=== PATIENT | female | born 1935 | race Caucasian/White ===

== ENCOUNTER → 2017-07-24 | Outpatient (CLI) | payer MEDICARE, OTHER ==
[~2017-07-24] MED LIST: ASPI325 PO; ASPI81CH; BLOOD PRESSURE MED; CEPH500 PO; CIPR500 PO; DAILY VALUE1 EACH PO; DILT120 PO; Inderal80 MG PO; Inspiration1 EACH NEB; LISI5 PO; LOSA50 PO; Levaquin750 MG PO; METO25ER PO; METR500 PO; Norco 5-325 Ta1 EACH PO; TRAACE PO; UNKNOWN BP MEDS PO; Zofran Odt4 MG SL; Zofran Odt8 MG SL; [UNRECOGNIZED DRUG - REMARK] PO
== END ==
LOC: LAB 14:35 → LAB SHORT 14:35
DX: R31.9 Hematuria, unspecified (principal)
CPT/HCPCS: 87086

== ENCOUNTER 2017-07-27 06:26 | Emergency (ER) | payer MEDICARE, OTHER ==
[~2017-07-27] VITALS: Ht 152.4 cm; Wt 54.4 kg
[~2017-07-27 06:26] MED LIST changes: -ASPI81CH; -CEPH500 PO; -DILT120 PO; -LOSA50 PO; -Zofran Odt4 MG SL
[2017-07-27] MEDS ORDERED: DILT120 PO (06:49)
[2017-07-27] MEDS ORDERED: ASPI81CH PO (06:50)
[2017-07-27] MEDS ORDERED: LOSA50 PO (06:50)
[2017-07-27 07:08] LABS: Bilirubin, Urine Neg (Neg); Blood, Urine 5+ (Neg); Glucose Qualitative, Urine Neg (Neg); Ketones, Urine 1+ (Neg); Leukocyte Esterase, Urine 3+ (Neg); Nitrite, Urine Neg (Neg); Protein, Urine 1+ (Neg); Urobilinogen, Urine NORM (Normal)
[2017-07-27 07:14] LABS: Appearance, Urine Cloudy (Clear); Color, Urine Yellow (P-Yellow)
[2017-07-27 07:15] LABS: Red Blood Cells, Urine TNTC /hpf (0-2)
[2017-07-27 07:16] LABS: Bacteria Many /hpf; Squamous Epithelial Cells Many /hpf (Few)
[2017-07-27 07:34] LABS: BASOPHILS ABSOLUTE AUTO 0.04 K/mm3 (0.00-0.23); BASOPHILS PERCENT AUTO 1 % (0-2); EOSINOPHILS ABSOLUTE AUTO 0.11 K/mm3 (0.00-0.68); EOSINOPHILS PERCENT AUTO 1 % (0-6); Hematocrit 41.5 % (33.0-51.0); Hemoglobin 13.6 g/dL (11.5-16.0); IMMATURE GRAN ABSOLUTE AUTO 0.02 K/mm3 (0.00-0.10); IMMATURE GRAN PERCENT AUTO 0 % (0-1); LYMPHOCYTES ABSOLUTE AUTO 1.02 K/mm3 (0.84-5.20); LYMPHOCYTES PERCENT AUTO 13 % (21-46); MONOCYTES PERCENT AUTO 6 % (4-13); Mean Corpuscular HGB 29.5 pg (26.0-34.0); Mean Corpuscular HGB Conc 32.8 g/dL (31.5-36.5); Mean Corpuscular Volume 90 fL (80-100); Mean Platelet Volume 9.9 fL (9.1-12.4); NEUTROPHILS ABSOLUTE AUTO 6.16 K/mm3 (1.96-9.15); NEUTROPHILS PERCENT AUTO 78 % (41-73); Platelet Count 222 K/mm3 (150-400); RDW Coefficient Variation 12.2 % (11.7-14.2); RDW Standard Deviation 39.9 fL (35.1-46.3); Red Blood Cell Count 4.61 M/mm3 (3.80-5.20); White Blood Cell Count 7.85 K/mm3 (4.00-11.30)
[2017-07-27 07:52] LABS: Alanine Aminotransfer (ALT/SGP 34 U/L (12-78); Albumin, Blood 3.7 g/dL (3.4-5.0); Albumin/Globulin Ratio 0.8 (0.8-1.8); Alk Phos 110 U/L (50-136); Anion Gap 10 mmol/L (6-16); Aspartate Aminotrans (AST/SGOT 31 U/L (12-37); Bilirubin, Total 0.6 mg/dL (0.1-1.0); Blood Urea Nitrogen 16 mg/dL (8-24); Bun/Creatinine Ratio 17.4 (12.0-20.0); CO2, Blood 25 mmol/L (21-32); Calcium, Blood 9.4 mg/dL (8.5-10.1); Chloride, Blood 99 mmol/L (98-108); Creatinine, Blood 0.92 mg/dL (0.40-1.00); Globulin, Blood 4.7 g/dL (2.2-4.0); Glomerular Filtration Rate >60 (60-); Glucose, Blood 141 mg/dL (70-99); Potassium, Blood 4.3 mmol/L (3.5-5.5); Sodium, Blood 134 mmol/L (136-145); Total Protein, Blood 8.4 g/dL (6.4-8.2)
[2017-07-27] MEDS ORDERED: CEPH500 PO (09:18)
[2017-07-27] MEDS ORDERED: Norco 5-325 Ta1 EACH PO (09:18)
[2017-07-27] MEDS ORDERED: Zofran Odt4 MG SL (09:18)
== END 2017-07-27 10:20 | disposition home or self-care (01) ==
LOC: ER 06:26
PROVIDERS: Emergency Medicine
DX: N12 Tubulo-interstitial nephritis, not specified as acute or chronic (principal); Z79.899 Other long term (current) drug therapy; Z79.82 Long term (current) use of aspirin; I10 Essential (primary) hypertension
CPT/HCPCS: 36415; 74176; 80053; 81001; 85025; 96361; 96365; 96375; 99284; J0696; J1885; J2405; J3010; J7030

== ENCOUNTER 2017-07-28 04:51 | Inpatient (IN) | payer MEDICARE, OTHER ==
[~2017-07-28] VITALS: Ht 154.9 cm; Wt 51.4 kg
[~2017-07-28 04:51] MED LIST changes: +ASPI81CH PO; +CEPH500 PO; +DILT120 PO; +LOSA50 PO; +Zofran Odt4 MG SL
[2017-07-28 06:31] LABS: Source, Urine Clean Catch
[2017-07-28 06:42] LABS: Bilirubin, Urine Neg (Neg); Blood, Urine 4+ (Neg); Glucose Qualitative, Urine 1+ (Neg); Ketones, Urine 3+ (Neg); Leukocyte Esterase, Urine 1+ (Neg); Nitrite, Urine Pos (Neg); Protein, Urine 2+ (Neg); Specific Gravity, Urine 1.025 (1.003-1.022); Urobilinogen, Urine NORM (Normal)
[2017-07-28 06:50] LABS: Appearance, Urine Clear (Clear); Color, Urine Yellow (P-Yellow)
[2017-07-28 06:51] LABS: BASOPHILS ABSOLUTE AUTO 0.03 K/mm3 (0.00-0.23); BASOPHILS PERCENT AUTO 0 % (0-2); EOSINOPHILS ABSOLUTE AUTO 0.01 K/mm3 (0.00-0.68); EOSINOPHILS PERCENT AUTO 0 % (0-6); Hematocrit 43.1 % (33.0-51.0); Hemoglobin 14.4 g/dL (11.5-16.0); IMMATURE GRAN ABSOLUTE AUTO 0.05 K/mm3 (0.00-0.10); IMMATURE GRAN PERCENT AUTO 0 % (0-1); LYMPHOCYTES ABSOLUTE AUTO 0.78 K/mm3 (0.84-5.20); LYMPHOCYTES PERCENT AUTO 6 % (21-46); MONOCYTES ABSOLUTE AUTO 0.97 K/mm3 (0.16-1.47); MONOCYTES PERCENT AUTO 8 % (4-13); Mean Corpuscular HGB 29.3 pg (26.0-34.0); Mean Corpuscular HGB Conc 33.4 g/dL (31.5-36.5); Mean Corpuscular Volume 88 fL (80-100); Mean Platelet Volume 9.8 fL (9.1-12.4); NEUTROPHILS ABSOLUTE AUTO 10.63 K/mm3 (1.96-9.15); NEUTROPHILS PERCENT AUTO 85 % (41-73); Platelet Count 221 K/mm3 (150-400); RDW Standard Deviation 38.5 fL (35.1-46.3); Red Blood Cell Count 4.92 M/mm3 (3.80-5.20); White Blood Cell Count 12.47 K/mm3 (4.00-11.30)
[2017-07-28 06:53] LABS: Bacteria Not Seen /hpf; Red Blood Cells, Urine 50-100 /hpf (0-2); Squamous Epithelial Cells Mod /hpf (Few); White Blood Cells, Urine 0-2 /hpf (0-5)
[2017-07-28 06:54] LABS: Granular Casts 0-2 /lpf (0); Renal Epithelial Few /hpf (0-Rare)
[2017-07-28 07:09] LABS: Alanine Aminotransfer (ALT/SGP 84 U/L (12-78); Albumin, Blood 3.5 g/dL (3.4-5.0); Albumin/Globulin Ratio 0.7 (0.8-1.8); Alk Phos 110 U/L (50-136); Anion Gap 10 mmol/L (6-16); Aspartate Aminotrans (AST/SGOT 168 U/L (12-37); Bilirubin, Total 1.3 mg/dL (0.1-1.0); Blood Urea Nitrogen 13 mg/dL (8-24); CO2, Blood 24 mmol/L (21-32); Calcium, Blood 9.1 mg/dL (8.5-10.1); Chloride, Blood 90 mmol/L (98-108); Creatinine, Blood 0.81 mg/dL (0.40-1.00); Globulin, Blood 4.8 g/dL (2.2-4.0); Glomerular Filtration Rate >60 (60-); Glucose, Blood 109 mg/dL (70-99); Potassium, Blood 4.1 mmol/L (3.5-5.5); Total Protein, Blood 8.3 g/dL (6.4-8.2)
[2017-07-28 07:24] LABS: Sodium, Blood 124 mmol/L (136-145)
[2017-07-28 09:10] LABS: International Normalized Ratio 1.08; Prothrombin Time Results 11.3 Sec (9.7-11.5)
[2017-07-29 06:08] LABS: BASOPHILS ABSOLUTE AUTO 0.02 K/mm3 (0.00-0.23); BASOPHILS PERCENT AUTO 0 % (0-2); EOSINOPHILS PERCENT AUTO 0 % (0-6); Hematocrit 40.7 % (33.0-51.0); Hemoglobin 13.6 g/dL (11.5-16.0); IMMATURE GRAN ABSOLUTE AUTO 0.08 K/mm3 (0.00-0.10); IMMATURE GRAN PERCENT AUTO 0 % (0-1); LYMPHOCYTES PERCENT AUTO 6 % (21-46); MONOCYTES ABSOLUTE AUTO 1.58 K/mm3 (0.16-1.47); MONOCYTES PERCENT AUTO 9 % (4-13); Mean Corpuscular HGB 29.1 pg (26.0-34.0); Mean Corpuscular HGB Conc 33.4 g/dL (31.5-36.5); Mean Corpuscular Volume 87 fL (80-100); Mean Platelet Volume 9.9 fL (9.1-12.4); NEUTROPHILS ABSOLUTE AUTO 15.65 K/mm3 (1.96-9.15); NEUTROPHILS PERCENT AUTO 85 % (41-73); Platelet Count 198 K/mm3 (150-400); RDW Coefficient Variation 12.4 % (11.7-14.2); RDW Standard Deviation 39.5 fL (35.1-46.3); Red Blood Cell Count 4.68 M/mm3 (3.80-5.20); White Blood Cell Count 18.33 K/mm3 (4.00-11.30)
[2017-07-29 06:24] LABS: Anion Gap 10 mmol/L (6-16); Blood Urea Nitrogen 13 mg/dL (8-24); Bun/Creatinine Ratio 16.3 (12.0-20.0); CO2, Blood 23 mmol/L (21-32); Calcium, Blood 8.9 mg/dL (8.5-10.1); Chloride, Blood 94 mmol/L (98-108); Glomerular Filtration Rate >60 (60-); Glucose, Blood 101 mg/dL (70-99); Sodium, Blood 127 mmol/L (136-145)
[2017-07-30] MEDS ORDERED: OMEPRAZOLE MAGN20 MG PO (09:35)
== END 2017-07-30 10:37 | disposition home or self-care (01) | DRG 872 ==
LOC: ER 04:51 → MEDS 08:34 → ENPENDDIS 07-30 09:18 → MEDS 07-30 10:37
PROVIDERS: Emergency Medicine; Hospitalist
DX: A41.9 Sepsis, unspecified organism (principal); E87.1 Hypo-osmolality and hyponatremia; N39.0 Urinary tract infection, site not specified; I48.91 Unspecified atrial fibrillation; I10 Essential (primary) hypertension
CPT/HCPCS: 36415; 74176; 80048; 80053; 81001; 83605; 85025; 85610; 85730; 87040; 96361; 96365; 96366; 96375; 99284; 99285; J0696; J1885; J2405; J3010; J7030

== ENCOUNTER → 2017-08-08 | Outpatient (CLI) | payer MEDICARE, OTHER ==
[~2017-08-08] MED LIST changes: +OMEPRAZOLE MAGN20 MG PO
== END ==
LOC: LAB 17:36 → LAB SHORT 17:36
DX: N39.0 Urinary tract infection, site not specified (principal)
CPT/HCPCS: 87077; 87086; 87186

== ENCOUNTER → 2017-09-05 | Outpatient (CLI) | END | disposition home or self-care (01) ==

== ENCOUNTER 2018-03-18 17:41 | Inpatient (IN) | payer MEDICARE, OTHER ==
[~2018-03-18] VITALS: Ht 152.4 cm; Wt 45.0 kg
[~2018-03-18 17:41] MED LIST changes: -Inderal80 MG PO; +PROP80ER PO
[2018-03-18 17:59] LABS: PCO2 Arterial 42.3 mmHg (35-45); PO2 Arterial 91.7 mmHg (80-100)
[2018-03-18 18:00] LABS: pH Blood Arterial 7.16 (7.35-7.45)
[2018-03-18 18:10] LABS: BASOPHILS ABSOLUTE AUTO 0.09 K/mm3 (0.00-0.23); BASOPHILS PERCENT AUTO 1 % (0-2); EOSINOPHILS ABSOLUTE AUTO 0.28 K/mm3 (0.00-0.68); EOSINOPHILS PERCENT AUTO 3 % (0-6); Hematocrit 48.8 % (33.0-51.0); IMMATURE GRAN ABSOLUTE AUTO 0.03 K/mm3 (0.00-0.10); IMMATURE GRAN PERCENT AUTO 0 % (0-1); LYMPHOCYTES ABSOLUTE AUTO 5.07 K/mm3 (0.84-5.20); LYMPHOCYTES PERCENT AUTO 57 % (21-46); MONOCYTES ABSOLUTE AUTO 0.42 K/mm3 (0.16-1.47); MONOCYTES PERCENT AUTO 5 % (4-13); Mean Corpuscular HGB 29.9 pg (26.0-34.0); Mean Corpuscular HGB Conc 30.7 g/dL (31.5-36.5); Mean Corpuscular Volume 97 fL (80-100); Mean Platelet Volume 11.1 fL (9.1-12.4); NEUTROPHILS ABSOLUTE AUTO 3.07 K/mm3 (1.96-9.15); NEUTROPHILS PERCENT AUTO 34 % (41-73); Platelet Count 183 K/mm3 (150-400); RDW Coefficient Variation 13.1 % (11.7-14.2); RDW Standard Deviation 46.4 fL (35.1-46.3); Red Blood Cell Count 5.02 M/mm3 (3.80-5.20); White Blood Cell Count 8.96 K/mm3 (4.00-11.30)
[2018-03-18] MEDS ORDERED: RIFA300 PO (18:22)
[2018-03-18] MEDS ORDERED: ETHA400 PO (18:22)
[2018-03-18] MEDS ORDERED: TIOT18 INH (18:23)
[2018-03-18] MEDS ORDERED: AZIT250 PO (18:23)
[2018-03-18] MEDS ORDERED: COMBIVENT RESPIM4 GM (18:24)
[2018-03-18] MEDS ORDERED: ALBU90OI61 INH (18:25)
[2018-03-18 18:32] LABS: Albumin, Blood 3.5 g/dL (3.4-5.0); Albumin/Globulin Ratio 0.8 (0.8-1.8); Bilirubin, Total 0.9 mg/dL (0.1-1.0); Bun/Creatinine Ratio 19.4 (12.0-20.0); Calcium, Blood 9.2 mg/dL (8.5-10.1); Creatinine, Blood 1.08 mg/dL (0.40-1.00); Globulin, Blood 4.5 g/dL (2.2-4.0); Magnesium, Blood 2.5 mg/dL (1.6-2.4); Potassium, Blood 4.6 mmol/L (3.5-5.5); Troponin I 0.021 ng/mL (0.000-0.040)
[2018-03-18] MEDS ORDERED: ALBU3IS INH (20:45)
[2018-03-18] MEDS ORDERED: Calcium + Vita1 EACH PO (20:49)
[2018-03-18] MEDS ORDERED: HYDCOR2.5C TOP (20:51)
[2018-03-19 03:14] LABS: BASOPHILS ABSOLUTE AUTO 0.01 K/mm3 (0.00-0.23); BASOPHILS PERCENT AUTO 0 % (0-2); EOSINOPHILS PERCENT AUTO 0 % (0-6); Hematocrit 40.9 % (33.0-51.0); Hemoglobin 13.4 g/dL (11.5-16.0); IMMATURE GRAN ABSOLUTE AUTO 0.02 K/mm3 (0.00-0.10); IMMATURE GRAN PERCENT AUTO 0 % (0-1); LYMPHOCYTES ABSOLUTE AUTO 0.79 K/mm3 (0.84-5.20); LYMPHOCYTES PERCENT AUTO 17 % (21-46); MONOCYTES ABSOLUTE AUTO 0.25 K/mm3 (0.16-1.47); MONOCYTES PERCENT AUTO 5 % (4-13); Mean Corpuscular HGB 30.3 pg (26.0-34.0); Mean Corpuscular HGB Conc 32.8 g/dL (31.5-36.5); Mean Platelet Volume 10.7 fL (9.1-12.4); NEUTROPHILS ABSOLUTE AUTO 3.61 K/mm3 (1.96-9.15); NEUTROPHILS PERCENT AUTO 77 % (41-73); Platelet Count 160 K/mm3 (150-400); RDW Standard Deviation 44.3 fL (35.1-46.3); Red Blood Cell Count 4.42 M/mm3 (3.80-5.20); White Blood Cell Count 4.68 K/mm3 (4.00-11.30)
[2018-03-19 03:16] LABS: Mean Corpuscular Volume 93 fL (80-100)
[2018-03-19 03:29] LABS: Anion Gap 8 mmol/L (6-16); Blood Urea Nitrogen 21 mg/dL (8-24); Bun/Creatinine Ratio 23.2 (12.0-20.0); CO2, Blood 26 mmol/L (21-32); Calcium, Blood 8.5 mg/dL (8.5-10.1); Chloride, Blood 106 mmol/L (98-108); Creatinine, Blood 0.91 mg/dL (0.40-1.00); Glomerular Filtration Rate >60 (60-); Glucose, Blood 155 mg/dL (70-99); Potassium, Blood 3.8 mmol/L (3.5-5.5); Sodium, Blood 140 mmol/L (136-145)
[2018-03-19 04:54] LABS: PCO2 Arterial 40.6 mmHg (35-45); PO2 Arterial 121 mmHg (80-100)
[2018-03-19] MEDS ORDERED: XARELTO20 MG PO (08:11)
[2018-03-19] MEDS ORDERED: LIDO5TO TOP (11:19)
[2018-03-20 03:54] LABS: Bun/Creatinine Ratio 20.8 (12.0-20.0); Calcium, Blood 8.6 mg/dL (8.5-10.1); Creatinine, Blood 1.06 mg/dL (0.40-1.00); Magnesium, Blood 1.8 mg/dL (1.6-2.4); Potassium, Blood 3.5 mmol/L (3.5-5.5)
[2018-03-21 06:33] LABS: Anion Gap 7 mmol/L (6-16); Blood Urea Nitrogen 18 mg/dL (8-24); CO2, Blood 28 mmol/L (21-32); Calcium, Blood 8.8 mg/dL (8.5-10.1); Chloride, Blood 103 mmol/L (98-108); Glomerular Filtration Rate >60 (60-); Glucose, Blood 97 mg/dL (70-99); Magnesium, Blood 2.3 mg/dL (1.6-2.4); Potassium, Blood 4.2 mmol/L (3.5-5.5); Sodium, Blood 138 mmol/L (136-145)
[2018-03-21] MEDS ORDERED: POTA10T PO (11:32)
[2018-03-21] MEDS ORDERED: TORSE20 PO (11:33)
[2018-03-21] MEDS ORDERED: NEBI10 PO (11:33)
== END 2018-03-21 12:48 | disposition home or self-care (01) | DRG 291 ==
LOC: ER 17:41 → ICUW 18:19 → MEDS 03-20 10:35 → ENPENDDIS 03-21 08:48 → MEDS 03-21 12:48
PROVIDERS: Emergency Medicine; Family Medicine; Internal Medicine Cardiovascular Disease; Internal Medicine Critical Care Medicine
PROC: 5A09357 Assistance with Respiratory Ventilation, Less than 24 Consecutive Hours, Continuous Positive Airway Pressure (ICD-10-PCS; principal; 2018-03-18)
DX: I11.0 Hypertensive heart disease with heart failure (principal); G93.41 Metabolic encephalopathy; J96.01 Acute respiratory failure with hypoxia; E87.2 Acidosis; E87.1 Hypo-osmolality and hyponatremia; A31.0 Pulmonary mycobacterial infection; J44.9 Chronic obstructive pulmonary disease, unspecified; I50.41 Acute combined systolic (congestive) and diastolic (congestive) heart failure; M81.0 Age-related osteoporosis without current pathological fracture; I48.2 Chronic atrial fibrillation; I08.0 Rheumatic disorders of both mitral and aortic valves; R73.9 Hyperglycemia, unspecified; I44.7 Left bundle-branch block, unspecified
CPT/HCPCS: 36415; 36600; 71045; 80048; 80053; 82803; 83605; 83735; 83880; 84484; 85025; 87040; 93005; 93010; 93306; 94640; 94644; 94660; 94760; 96374; 99285-25; J0696; J1650; J3475

== ENCOUNTER 2018-04-24 20:17 | Inpatient (IN) | payer MEDICARE, OTHER ==
[~2018-04-24] VITALS: Ht 157.5 cm; Wt 49.7 kg
[~2018-04-24 20:17] MED LIST changes: +ALBU3IS INH; +ALBU90OI61 INH; +AZIT250 PO; +COMBIVENT RESPIM4 GM; +Calcium + Vita1 EACH PO; +ETHA400 PO; +HYDCOR2.5C TOP; +LIDO5TO TOP; +NEBI10 PO; +POTA10T PO; +RIFA300 PO; +TIOT18 INH; +TORSE20 PO; +XARELTO20 MG PO
[2018-04-24 20:35] LABS: Calcium, Ionized (POC) 1.14 mmol/L (1.10-1.46); Chloride (POC) 102 mmol/L (98-108); Creatinine (POC) 1.2 mg/dL (0.6-1.0); Glucose (ISTAT POC) 211 mg/dL (70-99); Hemoglobin (POC) 16.3 g/dL (12.0-16.0); Potassium (POC) 4.6 mmol/L (3.5-5.5); Sodium (POC) 139 mmol/L (135-148); Total CO2 (POC) 22 mmol/L (21-32)
[2018-04-24 20:41] LABS: PO2 Arterial 219 mmHg (80-100)
[2018-04-24 20:42] LABS: PCO2 Arterial 71 mmHg (35-45); pH Blood Arterial <6.80 (7.35-7.45)
[2018-04-24 21:25] LABS: BASOPHILS ABSOLUTE AUTO 0.06 K/mm3 (0.00-0.23); BASOPHILS PERCENT AUTO 1 % (0-2); EOSINOPHILS PERCENT AUTO 4 % (0-6); Hematocrit 45.1 % (33.0-51.0); IMMATURE GRAN ABSOLUTE AUTO 0.03 K/mm3 (0.00-0.10); IMMATURE GRAN PERCENT AUTO 0 % (0-1); LYMPHOCYTES ABSOLUTE AUTO 4.28 K/mm3 (0.84-5.20); LYMPHOCYTES PERCENT AUTO 57 % (21-46); MONOCYTES ABSOLUTE AUTO 0.73 K/mm3 (0.16-1.47); MONOCYTES PERCENT AUTO 10 % (4-13); Mean Corpuscular HGB 30.9 pg (26.0-34.0); Mean Corpuscular Volume 100 fL (80-100); NEUTROPHILS ABSOLUTE AUTO 2.07 K/mm3 (1.96-9.15); NEUTROPHILS PERCENT AUTO 28 % (41-73); NRBC ABSOLUTE 0.03 K/mm3 (0.00-0.02); NRBC Auto 0.4 /100 WBC (0.0-0.2); RDW Coefficient Variation 11.6 % (11.7-14.2); RDW Standard Deviation 42.6 fL (35.1-46.3); Red Blood Cell Count 4.53 M/mm3 (3.80-5.20); White Blood Cell Count 7.47 K/mm3 (4.00-11.30)
[2018-04-24 21:31] LABS: Mean Platelet Volume 11.3 fL (9.1-12.4); Platelet Count 88 K/mm3 (150-400)
[2018-04-24 22:32] LABS: Albumin, Blood 1.3 g/dL (3.4-5.0); Albumin/Globulin Ratio 0.7 (0.8-1.8); Bilirubin, Total 0.2 mg/dL (0.1-1.0); Bun/Creatinine Ratio 18.6 (12.0-20.0); Calcium, Blood 5.9 mg/dL (8.5-10.1); Creatinine, Blood 1.02 mg/dL (0.40-1.00); Globulin, Blood 1.9 g/dL (2.2-4.0); Potassium, Blood 4.4 mmol/L (3.5-5.5); Total Protein, Blood 3.2 g/dL (6.4-8.2)
--- NOTE | 2018-04-25 | NUR ---
ARRIVAL TO UNIT PT ARRIVES TO UNIT APPROX 2310 VIA ER GURNEY. PT INTUBATED WITH NO SEDATION. EYES OPEN, FIXED. PT NOTED TO HAVE CONSTANT RHYTHMIC JERKING IN JAW AND INTERMITTENT JERKS OF BILATERAL UPPER AND LOWER EXTREMITIES. NO PAIN RESPONSE. CHEST TUBE TO LEFT LATERAL CHEST DRAINING RED FLUID. AIR LEAK PRESENT, NO TITALING NOTED. CONFIRMED SECURE DRAINAGE SYSTEM. 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 HARISH HUGGER IN PLACE ON ARRIVAL, PT HYPOTHERMIC. PT ALSO HYPOTENSIVE, BRADYCARDIC, AND HAS LOW 02 SATURATIONS. VENT SETTINGS MAXED. SEE VITALS AND ICU FLOWSHEET FOR VITALS AND PRESSOR TITRATIONS. DR. HELLER AT BEDSIDE FOR ASSESSMENT AND ORDERS.
--- NOTE | 2018-04-25 00:30 | NUR ---
DR. HELLER CONVERSATION WITH FAMILY DR. HELLER HAD EXTENSIVE CONVERSATION WITH FAMILY ABOUT PT'S STATUS. AT THIS TIME CONTINUE WITH FULL CODE UNTIL THE REST OF FAMILY ARRIVES TO DISCUSS.
--- NOTE | 2018-04-25 01:30 | NUR ---
DNR STATUS FAMILY BACK TO BEDSIDE AFTER CENTRAL LINE PLACEMENT. EDUCATION REGARDING PATIENT STATUS REINFORCED. FAMILY MADE DECISION THAT THEY WANT PT TO BE DNR AT THIS TIME. ALSO REQUESTED NO BLOOD. STATED THEY WOULD BE BACK IN THE MORNING TO TALK ABOUT FURTHER TREATMENT BUT TO CONTINUE WITH CURRENT MEDICATIONS, VENTILATION, AND INTERVENTIONS WITH EXCEPTION OF CODE STATUS.
[2018-04-25 02:03] LABS: PCO2 Arterial 49.6 mmHg (35-45); PO2 Arterial 60.2 mmHg (80-100); pH Blood Arterial 7.19 (7.35-7.45)
--- NOTE | 2018-04-25 02:29 | NUR ---
DR. HELLER COMMUNICATION UPDATED DR. HELLER ON REQUIRMENTS FOR LEVOPHED, EPINEPHRINE AND DOPAMINE WITH CONTINUED LOW BP'S. NO NEW ORDERS.
[2018-04-25 04:12] LABS: BASOPHILS ABSOLUTE AUTO 0.03 K/mm3 (0.00-0.23); BASOPHILS PERCENT AUTO 0 % (0-2); EOSINOPHILS ABSOLUTE AUTO 0.04 K/mm3 (0.00-0.68); EOSINOPHILS PERCENT AUTO 0 % (0-6); Hematocrit 41.5 % (33.0-51.0); Hemoglobin 13.1 g/dL (11.5-16.0); IMMATURE GRAN ABSOLUTE AUTO 0.15 K/mm3 (0.00-0.10); IMMATURE GRAN PERCENT AUTO 1 % (0-1); LYMPHOCYTES ABSOLUTE AUTO 1.12 K/mm3 (0.84-5.20); LYMPHOCYTES PERCENT AUTO 6 % (21-46); MONOCYTES ABSOLUTE AUTO 0.43 K/mm3 (0.16-1.47); MONOCYTES PERCENT AUTO 2 % (4-13); Mean Corpuscular HGB 31.1 pg (26.0-34.0); Mean Corpuscular HGB Conc 31.6 g/dL (31.5-36.5); Mean Corpuscular Volume 99 fL (80-100); Mean Platelet Volume 10.2 fL (9.1-12.4); NEUTROPHILS ABSOLUTE AUTO 16.83 K/mm3 (1.96-9.15); NEUTROPHILS PERCENT AUTO 91 % (41-73); NRBC ABSOLUTE 0.02 K/mm3 (0.00-0.02); NRBC Auto 0.1 /100 WBC (0.0-0.2); Platelet Count 114 K/mm3 (150-400); RDW Coefficient Variation 11.7 % (11.7-14.2); RDW Standard Deviation 42.5 fL (35.1-46.3); Red Blood Cell Count 4.21 M/mm3 (3.80-5.20)
[2018-04-25 04:35] LABS: Alanine Aminotransfer (ALT/SGP 129 U/L (12-78); Albumin, Blood 1.8 g/dL (3.4-5.0); Albumin/Globulin Ratio 0.6 (0.8-1.8); Alk Phos 120 U/L (50-136); Aspartate Aminotrans (AST/SGOT 260 U/L (12-37); Bilirubin, Direct 0.3 mg/dL (0.0-0.3); Bilirubin, Indirect 0.4 mg/dL (0.1-0.7); Bilirubin, Total 0.7 mg/dL (0.1-1.0); Blood Urea Nitrogen 27 mg/dL (8-24); Bun/Creatinine Ratio 21.4 (12.0-20.0); CO2, Blood 21 mmol/L (21-32); Chloride, Blood 96 mmol/L (98-108); Creatinine, Blood 1.26 mg/dL (0.40-1.00); Globulin, Blood 2.8 g/dL (2.2-4.0); Glomerular Filtration Rate 43 (60-); Phosphorus, Blood 4.3 mg/dL (2.5-4.9); Potassium, Blood 3.4 mmol/L (3.5-5.5); Total Protein, Blood 4.6 g/dL (6.4-8.2)
[2018-04-25 04:52] LABS: Glucose, Blood 527 mg/dL (70-99)
[2018-04-25 05:02] LABS: Anion Gap 17 mmol/L (6-16); Calcium, Blood 5.8 mg/dL (8.5-10.1); Sodium, Blood 134 mmol/L (136-145)
--- NOTE | 2018-04-25 05:20 | NUR ---
TEMP ACHEIVED NORMOTHERMIA, HARISH BRADY TURNED OFF
--- NOTE | 2018-04-25 06:06 | NUR ---
DR. HELLER COMMUNICATION DISCUSSED PT'S INCREASED FREQUENCY AND SEVERITY OF JERKING MOVEMENTS WITH DR. HELLER. ALSO UPDATED ON MOST RECENT LABS. PLAN TO CONTINUE WITH ATIVAN, ADD FENTANYL AND ADMIN CALCIUM GLUCONATE.
--- NOTE | 2018-04-25 06:49 | NUR ---
RESPIRATINS/JERKING AFTER FENTANYL ADMIN RESPIRATORY RATE IMMEDIATELY IMPROVED. TITAL VOLUMES ALTERNATE BETWEEN 40'S ONE BREATH AND 400'S FOR THE NEXT FEW BREATHS. JERKING MOVEMENTS STILL PRESENT BUT FAR LESS SEVERE.
--- NOTE | 2018-04-25 07:30 | NUR ---
ASSUMED CARE ASSUMED CARE OF PT AT 0700. REPORT RECEIVED FROM FAREED MILLER. PT INTUBATED, VENT SETTINGS AC 15, TV 300, PEEP 10, FiO2 100%. PT RESP PATTERN IRREGULAR - RATE ANYWHERE FROM 15 TO 40. TV 50'S TO 400'S. SPO2 80-85%. COPIOUS AMTS OF BLOODY SPUTUM BEING SUCTIONED FROM ET TUBE. PT HAS LEFT LATERAL CHEST TUBE TO SUCTION WITH BLOODY DRAINAGE IN SYSTEM. CREPITUS NOTED TO LEFT CLAVICULAR/NECK AREA WHICH CONTINUES DOWN TO LEFT BREAST, LEFT AXILLA, AND LEFT POSTERIOR SHOULDER. PT IS NOT SEDATED. CONTINUOUS MYOCLONIC JERKS NOTED WHICH IS UNRESPONSIVE TO IVP ATIVAN PER NOC RN. PUPILS MIDLINE, FIXED AND DILATED. PT HAS NO COUGH, GAG, OR CORNEAL REFLEX. PT HAS NO RESPONSE TO NOXIOUS PAINFUL STIMULI. PT HAS LEFT SUBCLAVIAN CENTRAL LINE WITH BICARB AT 125ML/HR, LEVOPHED AT 8MCG/MIN, DOPAMINE AT 20 MCG/KG/MIN, AND EPINEPHRINE AT 8MCG/MIN. MAP MAINTAINING >60, HR 70'S. PT HAVING SHORT RUNS OF VTACH ON MONITOR. PT HAS TEMP COLLIN IN PLACE WITH TEMP CURRENTLY 100.0. PT'S DAUGHTER JIA AND BROTHER ED AT BEDSIDE. WILL CONTINUE TO MONITOR PT CLOSELY.
--- NOTE | 2018-04-25 08:20 | NUR ---
DR. SPEARS ROUNDED ON PT. UPDATED ON PT CONDITION. DISCUSSED PT'S CONDITION WITH FAMILY MEMBERS AT BEDSIDE. NO NEW ORDERS RECEIVED AT THIS TIME.
--- NOTE | 2018-04-25 09:15 | NUR ---
DR. PICKERING ROUNDED ON PT. DISCUSSED PT'S CONDITION WITH FAMILY MEMBERS AT BEDSIDE. THEY ARE TRYING TO WAIT UNTIL OTHER FAMILY MEMBERS CAN MAKE IT IN TO SEE PT BEFORE WITHDRAWING CARE. ORDERS RECEIVED TO START PROPOFOL AND ATIVAN GTT'S TO TRY TO STOP MYOCLONIC JERKS/SEIZURE-LIKE ACTIVITY. NO ADDITIONAL ORDERS RECEIVED AT THIS TIME.
--- NOTE | 2018-04-25 09:56 | NUR ---
ATIVAN GTT STARTED AT 4MG/HR AND PROPOFOL GTT STARTED AT 20MCG/KG. WILL TITRATE TO EFFECT.
--- NOTE | 2018-04-25 10:22 | NUR ---
JERKING ACTIVITY STOPPED WITH PROPOFOL AT 25 MCG/KG AND ATIVAN AT 6MG/HR. NOW GETTING BETTER SPO2 PLEATH ON MONITOR - SATS CONSISTENTLY READING 78%. DISCUSSED WITH DR. PICKERING - PEEP INCREASED TO 12 ON VENTILATOR AT THIS TIME. RT MAGALY NOTIFIED. WILL CONTINUE TO MONITOR.
--- NOTE | 2018-04-25 10:54 | NUR ---
Echocardiogram completed.
--- NOTE | 2018-04-25 11:01 | NUR ---
Initial Visit: Pt is intubated, sedated, concern for anoxic injury. Daughter is at bedside. Family has decided to withdraw care. Daughter grieving appropriately. More family is coming. Will remain available.
--- NOTE | 2018-04-25 11:36 | NUR ---
COMFORT CARE/EXTUBATION PT'S DAUGHTER JIA STATES FAMILY IS READY TO DISCONTINUE CARE ON PT. STATES NO ADDITIONAL FAMILY MEMBERS WISH TO VISIT PT IN HER CURRENT CONDITION. DR. PICKERING NOTIFIED. COMFORT CARE ORDERS RECEIVED. PT EXTUBATED AT 1132. IV MEDICATIONS STOPPED AT THIS TIME EXCEPT FOR ATIVAN GTT TO PREVENT RE-SEIZING. PT'S DAUGHTER AND BROTHER AT BEDSIDE AT THIS TIME. CHAPLAIN RO AT BEDSIDE WELL.
--- NOTE | 2018-04-25 11:43 | NUR ---
TIME OF 1142.
--- NOTE | 2018-04-25 11:48 | NUR ---
Asked by RN to be present with family for extubation and TOD. They are non-holiness and subdued. RN did an excellent job making certain Mrs. Felix was comfortable. Pt peacefully with family holding her hand. Family tearful, but appropriate. Provided calm presence and affirmation of obvious love.
== END 2018-04-25 11:42 | DRG 871 ==
LOC: ER 20:17 → ICUE 22:33 → ICUW 22:33
PROVIDERS: Emergency Medicine; Internal Medicine Critical Care Medicine; ADMIT Hospitalist
PROC: 0W9B30Z Drainage of Left Pleural Cavity with Drainage Device, Percutaneous Approach (ICD-10-PCS; principal; 2018-04-24)
PROC: 5A1935Z Respiratory Ventilation, Less than 24 Consecutive Hours (ICD-10-PCS; 2018-04-24)
PROC: 02HV33Z Insertion of Infusion Device into Superior Vena Cava, Percutaneous Approach (ICD-10-PCS; 2018-04-24)
DX: A41.9 Sepsis, unspecified organism (principal); R65.21 Severe sepsis with septic shock; R40.20 Unspecified coma; J96.00 Acute respiratory failure, unspecified whether with hypoxia or hypercapnia; J96.01 Acute respiratory failure with hypoxia; I50.41 Acute combined systolic (congestive) and diastolic (congestive) heart failure; S22.42XA Multiple fractures of ribs, left side, initial encounter for closed fracture; A31.0 Pulmonary mycobacterial infection; G93.1 Anoxic brain damage, not elsewhere classified; N17.9 Acute kidney failure, unspecified; S27.0XXA Traumatic pneumothorax, initial encounter; I11.0 Hypertensive heart disease with heart failure; I46.2 Cardiac arrest due to underlying cardiac condition; Z51.5 Encounter for palliative care; I34.0 Nonrheumatic mitral (valve) insufficiency; I48.2 Chronic atrial fibrillation; Z79.01 Long term (current) use of anticoagulants; Y33.XXXA Other specified events, undetermined intent, initial encounter; Y92.019 Unspecified place in single-family (private) house as the place of occurrence of the external cause; Y99.9 Unspecified external cause status; Z66 Do not resuscitate; E83.52 Hypercalcemia; F32.9 Major depressive disorder, single episode, unspecified; J44.9 Chronic obstructive pulmonary disease, unspecified
CPT/HCPCS: 31720; 32551; 36415; 36556; 36600; 51702; 70450; 71045; 71260; 80047; 80053; 82248; 82803; 83605; 84100; 84484; 85014; 85025; 87040; 93005; 93010; 93308; 93321; 94002; 94003; 96374; 96375; 96376; 99291-25; 99292; C1751; C9113; J0171; J0461; J0610; J1265; J1953; J2060; J2250; J2543; J3010; J3370; J3475; J7060; J7070; Q9967